=== PATIENT | male | born 1995 | race Caucasian/White ===

== ENCOUNTER 2017-12-31 20:41 | Emergency (ER) | payer SELFPAY ==
[~2017-12-31] VITALS: Ht 185.4 cm; Wt 131.5 kg
[~2017-12-31 20:41] MED LIST: KET10 PO
[2017-12-31 20:51] VITALS: BP 162/100
--- NOTE | 2017-12-31 20:56 | ER Report ---
History and Physical Time Seen By MD: 20:55 Hx. of Stated Complaint: PT PRESENTS WITH FLU LIKE SYMPTOMS. FEVER, CORREA, DIARRHEA, VOMITING. HPI/ROS CHIEF COMPLAINT: Diarrhea, body aches HISTORY OF PRESENT ILLNESS: 22-year-old male presents ambulatory to the ER complaining of diarrhea frequently over the last 6-8 hours. Patient notes diffuse abdominal cramps. He notes a mild headache. He notes some severe nausea but no vomiting. Patient notes no fever or chills. He notes no blood in his diarrhea. He notes no mucous. Patient denies recent travel exposure to ill contacts or antibiotic use. REVIEW OF SYSTEMS: Respiratory: No cough, no dyspnea. Cardiovascular: No chest pain, no palpitations. Gastrointestinal: As above Musculoskeletal: No back pain. Allergies: Coded Allergies: No Known Drug Allergies (Unverified , 12/31/17) Home Meds Active Scripts Oxycodone Hcl/Acetaminophen (PERCOCET 5-325 MG TABLET) 1 Each Tablet, 1 EACH PO Q4-6H Y for pain or diarrhea. Reduction, #10 Prov:JESSICAKERRI Ramires DO 12/31/17 Promethazine Hcl (PROMETHAZINE HCL) 25 Mg Tablet, 25 MG PO Q4H Y for NAUSEA/ VOMITING, #10 TAB Prov:KERRI LOPEZ DO 12/31/17 Reviewed Nurses Notes: Yes Old Medical Records Reviewed: Yes Hx Smoking: No Smoking Status: Never Smoker Hx Substance Use Disorder: No Hx Alcohol Use: No Constitutional Vital Sign - Last 24 Hours 12/31/17 20:51 Temp 97.1 Pulse 110 Resp 20 B/P (MAP) 162/100 Pulse Ox 93 O2 Delivery Room Air Physical Exam General Appearance: The patient is alert, has no immediate need for airway protection and no current signs of toxicity. Vital signs stable, afebrile, mild HEENT: Pupils equal and round no injection. Oropharynx with moist mucous membranes, no erythema Respiratory: Chest is non tender, lungs are clear to auscultation. Cardiac: regular rate and rhythm Gastrointestinal: Abdomen is soft and non tender, no masses, bowel sounds normal. Musculoskeletal: Neck: Neck is supple and non tender. Extremities have full range of motion and are non tender. Skin: No rashes or lesions. DIFFERENTIAL DIAGNOSIS: After history and physical exam differential diagnosis was considered for diarrhea, infectious diarrhea, food poisoning, viral syndrome Medical Decision Making ED Course/Re-evaluation ED Course Patient was admitted to an examination room. H&P was done. The differential diagnoses was considered. On clinical examination. Patient is a benign nonsurgical abdomen. His vital signs are stable. He is mildly tachycardic. He 's been having diarrhea. It sounds to be related to food poisoning or viral in nature. He is advised to conservative treatment plan a clear liquid diet. Patient's given medication for symptom management. Decision to Disposition Date: Dec 31, 2017 Decision to Disposition Time: 21:06 Depart Departure Latest Vital Signs Vital Signs Date Time Temp Pulse Resp B/P (MAP) Pulse Ox O2 Delivery O2 Flow Rate FiO2 12/31/17 20:51 97.1 110 20 162/100 93 Room Air Impression: Primary Impression: Food poisoning Additional Impression: Diarrhea Condition: Improved Disposition: HOME OR SELF-CARE Referrals: MENA HOUSER MD New Scripts Oxycodone Hcl/Acetaminophen (PERCOCET 5-325 MG TABLET) 1 Each Tablet 1 EACH PO Q4-6H Y for pain or diarrhea. Reduction, #10 Prov: KERRI LOPEZ DO 12/31/17 Promethazine Hcl (PROMETHAZINE HCL) 25 Mg Tablet 25 MG PO Q4H Y for NAUSEA/VOMITING, #10 TAB Prov: KERRI LOPEZ DO 12/31/17 Patient Instructions: Clear Liquid Diet (ED), Food Poisoning (ED) Additional Instructions: Follow clear liquid diet for 24-48 hours and advance to Jcarlos diet, bananas, rice, applesauce and toast Take ibuprofen 200 mg 3 tablets 3 times a day as an anti-inflammatory and pain reliever Use Phenergan for nausea control Use Percocet, oxycodone for pain relief Take Imodium as needed to reduce the diarrhea Follow-up with your primary care if unimproved in 3-5 days or go to physician listed on your paperwork Problem Qualifiers Primary Impression: Food poisoning Encounter type: initial encounter Injury intent: accidental or unintentional Qualified Codes: T62.91XA - Toxic effect of unspecified noxious substance eaten as food, accidental (unintentional), initial encounter Additional Impression: Diarrhea Diarrhea type: unspecified type Qualified Codes: R19.7 - Diarrhea, unspecified KERRI LOPEZ DO Dec 31, 2017 20:56
[2017-12-31] MEDS ORDERED: PROM-110 PO (21:09)
[2017-12-31] MEDS ORDERED: OXYC-865 PO (21:09)
[2017-12-31] MEDS ORDERED: PROMETHAZINE HCL 25 MG TAB TH 2 TAB/BOTTLE PO ONE (21:10)
[2017-12-31] MEDS ORDERED: oxyCODONE/ACETAMIN 5/325MG TH 2 TAB/BOTTLE PO ONE (21:10)
== END 2017-12-31 21:22 | disposition home or self-care (01) ==
LOC: ER 20:56
DX: T62.91XA Toxic effect of unspecified noxious substance eaten as food, accidental (unintentional), initial encounter (principal); R19.7 Diarrhea, unspecified; R00.0 Tachycardia, unspecified
CPT/HCPCS: 99282